=== PATIENT | female | born 1940 | race Caucasian/White ===

== ENCOUNTER → 2018-10-13 | Outpatient (CLI) | payer OTHER ==
[~2018-10-13] MED LIST: CEPHALEXIN 500500 M3 PO; HYDROCODON-ACE1 EAC7 PO; NYSTATIN 100,0015 G1 TP; VITAMINS
== END ==
LOC: M.RAD 13:43
DX: N63.11 Unspecified lump in the right breast, upper outer quadrant (principal)

== ENCOUNTER → 2019-04-27 | Outpatient (CLI) | payer OTHER | LOC: M.RAD 11:12 | DX: N60.01 Solitary cyst of right breast (principal) ==

== ENCOUNTER 2019-05-15 17:27 | Inpatient (IN) | payer OTHER ==
[~2019-05-15] VITALS: Ht 157.5 cm; Wt 58.9 kg
[2019-05-15 17:28] VITALS: BP 127/64
[2019-05-15 18:08] LABS: ABSOLUTE LYMPHOCYTES 0.6 thou/uL (0.8-5.3); ABSOLUTE MONOCYTES 0.7 thou/uL (0.0-1.2); ABSOLUTE NEUTROPHILS 7.7 thou/uL (1.6-8.1); BASOPHILS 0.2 %; EOSINOPHILS 0.5 %; HEMATOCRIT 36.1 % (37.0-47.0); HEMOGLOBIN 12.2 gm/dL (12.0-15.0); MCH 30.1 pg (26.0-34.0); MCHC 33.7 g/dL (28.0-37.0); MCV 89.4 fL (80.0-100.0); MPV 8.3 fl. (7.2-11.1); NUCLEATED RBCS 0 /100WBC; PLATELET COUNT* 478 thou/uL (150-400); POLYS 84.3 %; RBC 4.04 mil/uL (4.20-5.00); RDW-CV 13.8 % (10.5-14.5); WBC 9.2 thou/uL (4.0-11.0)
[2019-05-15 18:18] LABS: ANION GAP 8 mmol/L (7-16); BUN 9 mg/dL (7-18); CALCIUM 8.5 mg/dL (8.5-10.1); CHLORIDE 91 mmol/L (98-107); CO2 25 mmol/L (21-32); CREATININE 0.9 mg/dL (0.6-1.3); GLUCOSE 159 mg/dL (70-99); SODIUM 124 mmol/L (136-145)
[2019-05-15 18:18] LABS: BE -0.9 mmol/L (-2 to +3); PCO2 32.3 mmHg (35.0-45.0); pH 7.456 (7.340-7.450)
[2019-05-15 18:20] LABS: PO2 39.6 mmHg (75.0-100.0)
[2019-05-15 18:23] LABS: APTT 31.6 Seconds (25.0-31.3); PROTIME 10.7 Seconds (9.20-11.50)
[2019-05-15 18:34] LABS: ALBUMIN 2.6 g/dL (3.4-5.0); ALKALINE PHOSPHATASE 219 U/L (46-116); LIPASE 60 U/L (73-393); MAGNESIUM 1.7 mg/dL (1.8-2.4); NT-PRO BRAIN NAT PEPTIDE 3811 pg/mL (<300); SGOT 59 U/L (15-37); SGPT 64 U/L (30-65); TOTAL BILIRUBIN 0.4 mg/dL (<0.1-1.0); TOTAL PROTEIN 7.3 g/dL (6.4-8.2); TROPONIN-I LEVEL <0.06 ng/mL (<0.06)
[2019-05-15 20:08] VITALS: BP 123/60
[2019-05-15 20:45] VITALS: BP 114/60
[2019-05-15] MEDS ORDERED: GENTEAL TEARS 015 M1 OPHTHALMIC (22:32)
[2019-05-16 00:25] VITALS: BP 134/71
[2019-05-16 04:00] VITALS: BP 118/71
[2019-05-16 04:15] LABS: HEMATOCRIT 32.6 % (37.0-47.0); MCH 30.1 pg (26.0-34.0); MCHC 33.8 g/dL (28.0-37.0); MCV 89.3 fL (80.0-100.0); MPV 7.9 fl. (7.2-11.1); RBC 3.65 mil/uL (4.20-5.00); RDW-CV 13.4 % (10.5-14.5); WBC 5.5 thou/uL (4.0-11.0)
[2019-05-16 04:36] LABS: ALBUMIN 2.1 g/dL (3.4-5.0); CALCIUM 8.3 mg/dL (8.5-10.1); CREATININE 0.6 mg/dL (0.6-1.3); POTASSIUM 4.3 mmol/L (3.5-5.1); TOTAL BILIRUBIN 0.3 mg/dL (<0.1-1.0); TOTAL PROTEIN 6.5 g/dL (6.4-8.2)
[2019-05-16 06:05] LABS: BE 2.2 mmol/L (-2 to +3); PCO2 37.8 mmHg (35.0-45.0); PO2 60.6 mmHg (75.0-100.0); pH 7.456 (7.340-7.450)
[2019-05-16 08:00] VITALS: BP 131/65
[2019-05-16 10:45] LABS: CHOLESTEROL 132 mg/dL (<200); HDL CHOLESTEROL 45 mg/dL (>40); LDL CHOLESTEROL 80 mg/dL (<100); MAGNESIUM 1.7 mg/dL (1.8-2.4); SERUM ASSESSMENT Clear; TC:HDL 2.9 Ratio (Not establshd); TRIGLYCERIDE 37 mg/dL (<150); VLDL 7 mg/dL (<40)
[2019-05-16 11:00] VITALS: BP 118/62
--- NOTE | 2019-05-16 13:03 | EKG ---
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: : 1940 Requested By: Kade Garcia Order Number: [id number] MD: Indra Millan Measurements Intervals [place] Rate: 84 P: 20 ND: 136 QRS: -35 QRSD: 108 T: -28 QT: 411 QTc: 486 Interpretive Statements Sinus rhythm Left axis deviation Nonspecific T abnormalities, anterior leads Borderline prolonged QT interval No previous ECG available for comparison Electronically Signed On 05-16-2019 13:03:49 CDT by Indra Millan [email or web address] <ELECTRONICALLY SIGNED> By: Indra Millan MD, [facility] 05/16/19 1303 1736 173 Indra Millan MD, [facility] /EPI
[2019-05-16 15:30] VITALS: BP 113/54
[2019-05-16] MEDS ORDERED: VITAMIN D3400 UNIT PO (17:25)
[2019-05-16] MEDS ORDERED: PROBIOTIC1 EAC1 PO (17:26)
[2019-05-16] MEDS ORDERED: UNICOMPLEX M TA1 TA1 PO (17:26)
[2019-05-16] MEDS ORDERED: PYRIDOXINE HCL50 MG PO (17:28)
[2019-05-16] MEDS ORDERED: GARLIC1 EACH PO (17:29)
[2019-05-16] MEDS ORDERED: FISH OIL 1,001000 M2 PO (17:30)
[2019-05-16] MEDS ORDERED: GLUCOSAMINE HC500 MG PO (17:32)
[2019-05-16] MEDS ORDERED: [UNRECOGNIZED DRUG - OTHER] PO (17:34)
[2019-05-16] MEDS ORDERED: VITAMIN E400 UNIT PO (17:35)
[2019-05-16] MEDS ORDERED: LUBRICANT 0.5-015 ML OPHTHALMIC (17:36)
[2019-05-16 20:00] VITALS: BP 115/57
[2019-05-16 20:40] LABS: URINE BILIRUBIN NEGATIVE (Negative); URINE BLOOD NEGATIVE (Negative); URINE CLARITY CLEAR; URINE COLOR YELLOW; URINE GLUCOSE-RANDOM NEGATIVE (Negative); URINE KETONES NEGATIVE (Negative); URINE LEUKOCYTES-REFLEX NEGATIVE (Negative); URINE NITRITE-REFLEX NEGATIVE (Negative); URINE PROTEIN NEGATIVE (Negative); URINE UROBILINOGEN 0.2 E.U./dl (0.2-1.0)
[2019-05-16 20:47] LABS: AMP/METHAMP Negative (Negative); BARBITURATES Negative (Negative); BENZODIAZEPINES Negative (Negative); COCAINE Negative (Negative); METHADONE Negative (Negative); OPIATES Negative (Negative); PCP Negative (Negative); THC Negative (Negative)
[2019-05-17] VITALS (7 sets, daily range): BP systolic 113–136; BP diastolic 50–71
[2019-05-17 03:07] LABS: GLYCOHEMOGLOBIN (HGB A1C) 5.5 % (4.8-5.6)
[2019-05-17 04:56] LABS: CALCIUM 8.7 mg/dL (8.5-10.1); CREATININE 0.7 mg/dL (0.6-1.3); POTASSIUM 4.8 mmol/L (3.5-5.1)
[2019-05-17 05:03] LABS: HEMATOCRIT 32.9 % (37.0-47.0); HEMOGLOBIN 10.7 gm/dL (12.0-15.0); MCH 29.7 pg (26.0-34.0); MCHC 32.5 g/dL (28.0-37.0); MCV 91.6 fL (80.0-100.0); NUCLEATED RBCS 0 /100WBC; PLATELET COUNT* 420 thou/uL (150-400); RBC 3.59 mil/uL (4.20-5.00); RDW-CV 13.7 % (10.5-14.5); WBC 14.8 thou/uL (4.0-11.0)
[2019-05-17 06:48] LABS: ABSOLUTE LYMPHOCYTES 0.6 thou/uL (0.8-5.3); ABSOLUTE NEUTROPHILS 14.2 thou/uL (1.6-8.1); PLATELET ESTIMATE ADEQUATE
--- NOTE | 2019-05-17 08:25 | CON ---
[address] [address] CONSULTATION Name: HALLIE GLORIA Room: [address] IN M.R.#: [id number] Admission: 05/15/19 Attend Phys: Glenda Fernandez MD Discharge: Date of : 38 Report #: [id number] THIS REPORT FOR: //name// CC: Glenda Miner MD DATE OF SERVICE: 05/16/2019 ATTENDING PHYSICIAN: John Sales MD INDICATION FOR CONSULTATION: Hypoxemia, pulmonary infiltrates, fibrosis versus congestive heart failure. HISTORY OF PRESENT ILLNESS: The patient is an 78-year-old female, nonsmoker with multiple medical problems. She was seen in the Emergency Room with a 7-day history of increasing shortness of breath. She had some mild PND and orthopnea. She has had some peripheral edema and some lymphedema of her legs for which she bandages her legs up. She denies cough. She had 1 episode of low-grade fever. Denies any chills or sweats. She had diffuse infiltrates on her chest x-ray and on her CAT scan, looked more like pulmonary fibrosis at least at this time and possibly with some alveolar filling. She denies any aspiration to me. She states she has lost 100 pounds upon intention over the last 2 or 3 years, but denies fever, chills or night sweats at least at this time. She has had some arthritis in her hands, but denies any history of rheumatoid arthritis. No definite aspiration. She was markedly hypoxic with a pO2 in the 30s, which appeared to be an arterial sample upon admit and she was placed up to 12 liters. She is still running 91-92%. Cardiology is also supposed to see her. She is not very active at home. Does not get up and walk around much, but she states 2 or 3 weeks ago, she was fine and could walk across her apartment, still could not get out of air if she could go up and down stairs. She denies any sick or ill contacts or any recent travel. PAST MEDICAL HISTORY: She has had bilateral lower extremity edema. She has had weight loss, etiology unclear. She has some kyphosis. She has no history of COPD. She denies that and she has also had prior head injury, possible hyponatremia and she has had a scaphoid fracture of both wrists and had a distal radial fracture, which was just treated conservatively with casting. ALLERGIES: She has no known medical allergies. MEDICATIONS: She was previously on Keflex and nystatin and has never been on oxygen before. OTHER SURGICAL HISTORY: Includes 3 wrist breaks, osteoporosis [place] [address] CONSULTATION Name: HALLIE GLORIA Room: [address] ADM IN .R.#: [id number] Admission: 05/15/19 Attend Phys: Glenda Fernandez MD Discharge: Date of : 38 Report #: [id number] with medication for hypertension. Currently, the Solu-Medrol has just been ordered to 40 mg IV q. 8 hours and DuoNeb q. 4 hours while awake. She had 1 dose of Lasix yesterday afternoon, did not have much of a brisk response with that. We will repeat that dose of Lasix this morning. Also, is on ceftriaxone 1 gram IV piggyback daily, also on Lovenox 40 mg at bedtime. She is currently on 12 liters of oxygen with a sat of 92. FAMILY HISTORY: Negative for premature cardiopulmonary disease. No history of lung problems in the family. SOCIAL HISTORY: She is and lives at home with her son, Arcadio, who I believe is durable power of attorney law clerk and she lives in [place], [place]. Dr. Rosalee Stevenson, , is her attending physician. Again lifelong nonsmoker, nondrinker. REVIEW OF SYSTEMS: A 14 review of systems reviewed and negative except for a 100-pound weight loss over the last 2 years and some lymphedema. Otherwise, see H and P for pertinent findings, all else were negative. PHYSICAL EXAMINATION: GENERAL: A thin, frail, mildly dyspneic 78-year-old female, alert and oriented, in no acute distress at this time. VITAL SIGNS: Blood pressure is 130/65, heart rate 72, respirations were 20 and nonlabored, temperature is 36.4 degrees. She is 5 feet 3 inches tall, weight is 59 kilograms or 132 pounds and BMI is 23. HEENT: Unremarkable. Pharynx is clear. Teeth are in fair repair. NECK: Supple, without nodes. No increased jugular venous pressure. CHEST: Reveals bibasilar crackles in the lower lobes and some in the upper lobes without wheezes or rhonchi. She has some ykyn-an-cuqoojkh kyphosis noted on physical exam. CARDIOVASCULAR: Regular rate and rhythm without murmur, gallop or rub. Heart rate is in the 80s. ABDOMEN: Soft, without masses or megaly. EXTREMITIES: No cyanosis. Some edema, no clubbing and basically she was wrapped up with Trey bandages on her legs. I could get my finger through there. No actual clots or calf tenderness, maybe some 1+ swelling. Peripheral pulses are 2+. NEUROLOGIC: Grossly intact. She is nonfocal, can move all fours to commands. LABORATORY DATA: From 05/16/2019 shows hemoglobin 11, white count 5500, normal differential, platelets are 401,000. Sodium is 131, potassium is 4.3, chloride is 95, BUN is 8, creatinine 0.6, glucose is 157. AST and ALT are slightly elevated, alkaline phosphatase 175. Albumin is 2.1. Previous BNP was 3811, less than 300 is normal and albumin is 2.6. Lipase is 60. ABGs initially on room air on 05/15/2019 yesterday afternoon shows pO2 of 40, pH 7.45, pCO2 is 32 with a bicarb of 23, sat of 73%. This was thought to [place] [address] CONSULTATION Name: HALLIE GLORIA Room: [address] ADM [facility]#: [id number] Admission: 05/15/19 Attend Phys: Glenda Fernandez MD Discharge: Date of : 38 Report #: [id number] arterial blood gas. Repeat blood gas this morning on 12 liters showed a pO2 of 61, pH 7.45, pCO2 is 37, bicarb is 26, sat was 89%, which is improved. Carboxyhemoglobin is only 0.[address] of the chest and chest x-ray shows diffuse infiltrates, interstitial lung disease. No lung clots. Heart is upper limits of normal. Echo is pending. Cardiology consult is pending. IMPRESSION: 1. Diffuse pulmonary infiltrates, hypoxemia, etiology unclear, need to rule out aspiration versus idiopathic pulmonary fibrosis which would be a fairly rapid onset within 1 week. 2. Elevated BNP level, possible congestive heart failure. We will give an extra dose of Lasix. PLAN: Give an extra dose of Lasix. Continue on q. 8 hours of Solu-Medrol treatments and DuoNeb q. 4 hours while awake. Follow up another chest x-ray in the morning. If we need to at some point in time, we can consider fiberoptic bronchoscopy as an outpatient if the patient is willing. I do not think she needs open lung biopsy at least at this time. We will await the echocardiogram and then wait for CT of the chest and possibly CT angio of the chest to see if we need to do bronchoscopy and/or open lung biopsy. Rheumatoid factor and workup for lupus and single stranded DNA and RNA would be helpful to do a collagen vascular workup and see if that is an etiology of this. Maybe some venous Dopplers of her legs if she does not improve. This has been a 38-minute critical care consult. <ELECTRONICALLY SIGNED> By: Marcos Alvarenga MD 05/17/19 0825 1110 2117Amickey Alvarenga MD /nt
[2019-05-17 11:34] LABS: BE 3.8 mmol/L (-2 to +3); PCO2 41.7 mmHg (35.0-45.0); pH 7.447 (7.340-7.450)
[2019-05-18] VITALS: BP 135/69
[2019-05-18 03:45] VITALS: BP 109/67
[2019-05-18 05:11] LABS: CALCIUM 8.5 mg/dL (8.5-10.1); CREATININE 0.6 mg/dL (0.6-1.3); POTASSIUM 4.5 mmol/L (3.5-5.1)
--- NOTE | 2019-05-18 07:31 | 2DMMODE ---
[place] [address] 2 D/M-MODE ECHOCARDIOGRAM Name: HALLIE GLORIA Room: [address] IN [facility]#: [id number] Admission: 05/15/19 Attend Phys: Glenda Fernandez, Discharge: Date of : 36 Date of Service: 05/18/19 0731 Report #: [id number] THIS REPORT FOR: //name// APPROVED REPORT Study performed: 05/17/2019 11:58:03 EXAM: Comprehensive 2D, Doppler, and color-flow Echocardiogram Patient Location: In-Patient Room #: 202 Status: routine BSA: 1.59 HR: 77 bpm BP: 130/60 mmHg Rhythm: NSR Other Information Study Quality: Excellent Indications Dyspnea 2D Dimensions IVSd: 12.58 (7-11mm) LVOT Diam: 20.30 (18-24mm) LVDd: 46.83 mm PWd: 9.39 (7-11mm) Ascending Ao: 27.34 (22-36mm) LVDs: 25.85 (25-40mm) Aortic Root: 29.84 mm Volumes Left Atrial Volume (Systole) LA ESV Index: 47.30 mL/m2 Aortic Valve AoV Peak Jeet.: 3.01 m/s AO Peak Gr.: 36.16 mmHg LVOT Max P.95 mmHg AO Mean Gr.: 20.90 mmHg LVOT Mean P.91 mmHg LVOT Max V: 1.22 m/s AO V2 VTI: 63.22 cm LVOT Mean V: 0.78 m/s ANEESH (VTI): 1.46 cm2 LVOT V1 VTI: 28.45 cm AI Pershing: 3.05 m/s2 AI PHT: 357.34 ms Mitral Valve E/A Ratio: 0.74 [place] [address] 2 D/M-MODE ECHOCARDIOGRAM Name: JUANIHALLIE MACDONALD Room: [address] IN ..#: [id number] Admission: 05/15/19 Attend Phys: Glenda Fernandez, Discharge: Date of : 36 Date of Service: 05/18/19 0731 Report #: [id number] MV Decel. Time: 260.05 ms MV E Max Jeet.: 0.68 m/s MV PHT: 75.41 ms MVA (PHT): 2.92 cm2 TDI E/Lateral E': 6.80 E/Medial E': 8.50 Medial E' Jeet.: 0.08 m/s Lateral E' Jeet.: 0.10 m/s Pulmonary Valve PV Peak Jeet.: 0.78 m/s PV Peak Gr.: 2.45 mmHg Tricuspid Valve RAP Estimate: 10.00 mmHg TR Peak Gr.: 34.29 mmHg RVSP: 44.00 mmHg PA Pressure: 44.00 mmHg Left Ventricle The left ventricle is normal size. There is global hypokinesis of the left ventricle. There is normal left ventricular wall thickness. Left ventricular systolic function is mildly decreased. LVEF is 45-50%. Grade I - abnormal relaxation pattern. Right Ventricle Right ventricle is dilated. The right ventricular systolic function is normal. Atria Left atrium is severely dilated. Right atrium is dilated. Aortic Valve Aortic valve leaflets are moderately thickened. Mild aortic regurgitation. Mild aortic stenosis. Mitral Valve The mitral valve is normal in structure. Trace mitral regurgitation. No evidence of mitral valve stenosis. Tricuspid Valve The tricuspid valve is normal in structure. Mild tricuspid regurgitation. estimated pa pressure 45 mm Hg Pulmonic Valve Pulmonic valve is not well visualized. There is no pulmonic [place] [address] 2 D/M-MODE ECHOCARDIOGRAM Name: HALLIE GLORIA Room: [address] IN [facility]#: [id number] Admission: 05/15/19 Attend Phys: Glenda Fernandez, Discharge: Date of : 36 Date of Service: 05/18/19 0731 Report #: [id number] Great Vessels The aortic root is normal in size. IVC is dilated. Pericardium There is no pericardial effusion. <Conclusion> LVEF is 45-50%. Right ventricle is dilated. Left atrium is severely dilated. Right atrium is dilated. Mild aortic regurgitation. Mild aortic stenosis. Mild tricuspid regurgitation. estimated pa pressure 45 mm Hg <ELECTRONICALLY SIGNED> By: Indra Millan MD, [facility] 05/18/19730 0 0 Indra Millan MD, [facility]ACC /INF
[2019-05-18 08:00] VITALS: BP 128/59
--- NOTE | 2019-05-18 10:40 | CON ---
[address] [address] CONSULTATION Name: HALLIE GLORIA Room: [address] IN M.R.#: [id number] Admission: 05/15/19 Attend Phys: Glenda Fernandez MD Discharge: Date of : 38 Report #: [id number] THIS REPORT FOR: //name// CC: Glenda Stevenson DO DATE OF SERVICE: 05/16/2019 CARDIOLOGY CONSULTATION HISTORY OF PRESENT ILLNESS: The patient is an 78-year-old single white female who I was asked to see in the hospital today after she complained of being short of breath. The patient denies a history of heart or lung disease. She stays fairly active and works out on a treadmill at home. She does use a cane occasionally. She notes for the past week, she has had increasing shortness of breath. She notes a fever or cough. Because of increasing shortness of breath, she finally came to the hospital last night and was admitted. I was asked to see her for cardiac evaluation. She denies a history of myocardial infarction or chest pain. She denies a history of a heart murmur. She has had no previous cardiac evaluation. Denies any palpitations or syncope. She apparently has a long history of chronic swelling of her legs. She has been diagnosed with lymphedema in the past and uses daily wraps around her legs. She has had previous wrist fracture. She has had elevated blood pressure in the past, but is on no medications at this time. FAMILY HISTORY: Father with diabetes. SOCIAL HISTORY: She is , lives with son in [place]. No smoking. Rarely drinks alcohol. REVIEW OF SYSTEMS: She has had no history of stroke, asthma, peptic ulcer disease, liver disease, kidney disease, cancer, psychiatric illness, chronic skin condition. PHYSICAL EXAMINATION: GENERAL: Revealed an elderly frail appearing female, lying in bed. She appeared in no distress. VITAL SIGNS: She had a blood pressure 130/60, pulse is 70. She is afebrile. HEENT: She was anicteric. Conjunctivae pink. Mucous membranes moist. NECK: Veins do not appear distended. No carotid bruits heard. CHEST: Clear to auscultation. CARDIOVASCULAR: Regular rate and rhythm. There was a grade 3 holosystolic murmur at the apex. ABDOMEN: Soft. EXTREMITIES: She had wrappings around both lower [place] [address] CONSULTATION Name: HALLIE GLORIA Room: [address]#: [id number] Admission: 05/15/19 Attend Phys: Glenda Fernandez MD Discharge: Date of : 38 Report #: [id number] SKIN: Cool and dry. NEUROLOGIC: Nonfocal. RADIOLOGICAL DATA: Her ECG on admission showed a sinus rhythm, occasional PVC. There does not appear to be a 12-lead ECG on the patient's chart at this time. Her workup in the Emergency Room last night, she had a CT scan of the chest using a PE protocol last night in the Emergency Room that showed no pulmonary embolus, no aortic dissection, atelectasis or chronic pulmonary changes noted. Her portable chest x-ray showed cardiomegaly, diffuse pulmonary changes. Pulmonary vasculature appeared normal. Pulmonary infiltrates. LABORATORY WORK: Sodium 131, creatinine 0.6, glucose 157, alkaline phosphatase is 175, albumin 2.1. Troponin 0.06. BNP 3811, LDL 80. TSH is 0.29, white blood cell count 5.5, hemoglobin 11, hematocrit 36.1. IMPRESSION AND RECOMMENDATIONS: 1. Bronchitis. 2. Bilateral pulmonary infiltrates. Possible atypical pneumonia. 3. Heart murmur. Suspect mitral regurgitation. Recommend echocardiogram. 4. Lymphedema. The patient wears leg wrappings. <ELECTRONICALLY SIGNED> By: Indra Millan MD, [facility] 05/18/19 1040 1123 2103Dike Millan MD, FACC /nt
[2019-05-18 12:18] VITALS: BP 119/55
[2019-05-18 16:14] VITALS: BP 111/53
[2019-05-18 20:00] VITALS: BP 145/73
[2019-05-19] VITALS (7 sets, daily range): BP systolic 103–158; BP diastolic 48–81
[2019-05-19 04:31] LABS: CALCIUM 8.8 mg/dL (8.5-10.1); CREATININE 0.6 mg/dL (0.6-1.3); POTASSIUM 4.7 mmol/L (3.5-5.1)
[2019-05-19 14:08] LABS: ANA INTERPRETATION Negative (Negative)
[2019-05-20] VITALS (7 sets, daily range): BP systolic 101–128; BP diastolic 50–63
[2019-05-20 05:02] LABS: HEMATOCRIT 35.4 % (37.0-47.0); HEMOGLOBIN 11.9 gm/dL (12.0-15.0); MCHC 33.5 g/dL (28.0-37.0); MCV 89.7 fL (80.0-100.0); MPV 7.4 fl. (7.2-11.1); NUCLEATED RBCS 0 /100WBC; PLATELET COUNT* 430 thou/uL (150-400); RBC 3.94 mil/uL (4.20-5.00); RDW-CV 13.4 % (10.5-14.5); WBC 7.4 thou/uL (4.0-11.0)
[2019-05-20 05:26] LABS: CALCIUM 8.6 mg/dL (8.5-10.1); CREATININE 0.8 mg/dL (0.6-1.3); POTASSIUM 4.8 mmol/L (3.5-5.1)
[2019-05-20 05:53] LABS: ABSOLUTE EOSINOPHILS 0.2 thou/uL (0.0-0.7); ABSOLUTE LYMPHOCYTES 0.7 thou/uL (0.8-5.3); ABSOLUTE MONOCYTES 0.2 thou/uL (0.0-1.2); ABSOLUTE NEUTROPHILS 6.2 thou/uL (1.6-8.1); PLATELET ESTIMATE INCREASED
[2019-05-20 05:54] LABS: ANISOCYTOSIS 1+; LARGE PLATELETS RARE; POIKILOCYTOSIS 1+
[2019-05-20 14:09] LABS: ANTI-DNA SCREEN <1 IU/mL (0-9); ANTI-RNP <0.2 AI (0.0-0.9)
[2019-05-21] VITALS: BP 123/67
[2019-05-21 04:00] VITALS: BP 114/60
[2019-05-21 04:52] LABS: CALCIUM 8.8 mg/dL (8.5-10.1); CREATININE 0.7 mg/dL (0.6-1.3); MAGNESIUM 2.3 mg/dL (1.8-2.4); POTASSIUM 5.3 mmol/L (3.5-5.1)
[2019-05-21 07:57] VITALS: BP 122/51
[2019-05-21 16:00] VITALS: BP 90/42
[2019-05-21 21:00] VITALS: BP 119/54
[2019-05-22] VITALS: BP 117/60
[2019-05-22 04:00] VITALS: BP 109/66
[2019-05-22 05:35] LABS: CALCIUM 8.4 mg/dL (8.5-10.1); CREATININE 0.7 mg/dL (0.6-1.3); MAGNESIUM 1.8 mg/dL (1.8-2.4); POTASSIUM 4.7 mmol/L (3.5-5.1)
[2019-05-22 08:00] VITALS: BP 146/95
[2019-05-22 12:00] VITALS: BP 95/52
[2019-05-22 15:27] VITALS: BP 110/52
[2019-05-22 20:00] VITALS: BP 99/44
[2019-05-23] VITALS: BP 113/50
[2019-05-23 04:00] VITALS: BP 127/62
[2019-05-23 04:54] LABS: CALCIUM 8.3 mg/dL (8.5-10.1); CREATININE 0.6 mg/dL (0.6-1.3); MAGNESIUM 2.1 mg/dL (1.8-2.4); POTASSIUM 4.4 mmol/L (3.5-5.1)
[2019-05-23 07:45] VITALS: BP 113/60
[2019-05-23] MEDS ORDERED: METOPROLOL SUCC25 M1 PO (08:48)
[2019-05-23] MEDS ORDERED: VENTOLIN HFA 1818 GM INH (08:49)
[2019-05-23] MEDS ORDERED: COZAAR 50 MG TA50 M1 PO (08:49)
[2019-05-23] MEDS ORDERED: LASIX 40 MG TAB40 M2 PO (08:49)
[2019-05-23 11:54] VITALS: BP 113/60
== END 2019-05-23 18:48 | disposition home health service (06) | DRG 177 ==
LOC: M.ERS 17:27 → M.TBA-ER 18:48 → M.2W 18:48
PROVIDERS: Family Medicine; Internal Medicine; Internal Medicine Cardiovascular Disease; Internal Medicine Pulmonary Disease; ADMIT Internal Medicine
DX: J15.6 Pneumonia due to other Gram-negative bacteria (principal); J96.01 Acute respiratory failure with hypoxia; I50.43 Acute on chronic combined systolic (congestive) and diastolic (congestive) heart failure; E87.1 Hypo-osmolality and hyponatremia; I47.2 Ventricular tachycardia; J84.9 Interstitial pulmonary disease, unspecified; M81.0 Age-related osteoporosis without current pathological fracture; R01.1 Cardiac murmur, unspecified; I89.0 Lymphedema, not elsewhere classified; M13.842 Other specified arthritis, left hand; M13.841 Other specified arthritis, right hand; I11.0 Hypertensive heart disease with heart failure; J45.909 Unspecified asthma, uncomplicated; Z66 Do not resuscitate; E11.9 Type 2 diabetes mellitus without complications; J84.10 Pulmonary fibrosis, unspecified; I27.20 Pulmonary hypertension, unspecified; I08.0 Rheumatic disorders of both mitral and aortic valves; E05.90 Thyrotoxicosis, unspecified without thyrotoxic crisis or storm; Z79.899 Other long term (current) drug therapy; Z87.81 Personal history of (healed) traumatic fracture; Z83.3 Family history of diabetes mellitus; Z82.49 Family history of ischemic heart disease and other diseases of the circulatory system

== ENCOUNTER → 2019-05-26 | Outpatient (CLI) | payer OTHER ==
[~2019-05-26] MED LIST changes: +COZAAR 50 MG TA50 M1 PO; +FISH OIL 1,001000 M2 PO; +GARLIC1 EACH PO; +GENTEAL TEARS 015 M1 OPHTHALMIC; +GLUCOSAMINE HC500 MG PO; +LASIX 40 MG TAB40 M2 PO; +LUBRICANT 0.5-015 ML OPHTHALMIC; +METOPROLOL SUCC25 M1 PO; +PROBIOTIC1 EAC1 PO; +PYRIDOXINE HCL50 MG PO; +UNICOMPLEX M TA1 TA1 PO; +VENTOLIN HFA 1818 GM INH; +VITAMIN D3400 UNIT PO; +VITAMIN E400 UNIT PO; +[UNRECOGNIZED DRUG - OTHER] PO
[2019-05-26 13:12] LABS: CALCIUM 8.5 mg/dL (8.5-10.1); CREATININE 0.3 mg/dL (0.6-1.3); POTASSIUM 5.7 mmol/L (3.5-5.1)
== END ==
LOC: M.LAB 12:16
PROVIDERS: Nurse Practitioner
DX: I50.22 Chronic systolic (congestive) heart failure (principal)

== ENCOUNTER → 2019-10-15 | Outpatient (CLI) | payer OTHER ==
--- NOTE | 2019-10-16 17:07 | PATH ---
[address] [address] PATHOLOGY RPT PROCEDURE Name: HALLIE AMES [id number] Admission: 10/15/19 Date of : 36 Discharge: Report #: [id number] Path Case #: [id number] [facility] Accession Number: [id number] . 01 Material submitted: . breast - RIGHT BREAST STEREOTACTIC BIOPSY FOR CALCIFICATIONS. Modifiers: right . 01 Clinical history: . Right breast stereotactic biopsy for calcifications . 02 Diagnosis: Right breast calcifications, stereotactic biopsy: - Benign fat with multiple nodular foci of fat necrosis showing dense fibrosis and coarse calcifications. See comment. (JESSICA:arnoldo; 10/16/2019) MBR 10/16/2019 1229 Local . 02 Comment: There are no breast epithelial tissues identified. Reviewed with Dr. Donal Wilkinson who agrees with the diagnosis. (JESSICA:it support manager; 10/16/2019) . 02 Electronically signed: . Cassius Estrada MD, Pathologist NPI- [id number] . 01 Gross description: . Received in formalin labeled "Hallie Ames, right breast calcifications," are 6 distinct needle cores of yellow-burks fibrofatty tissue ranging from 2.3-2.6 cm in length and 0.5-0.6 cm in diameter. The tissue is submitted in its entirety in cassettes A1-A3. The cold ischemic time is 5 minutes. The total formalin fixation time is 8 hours. (TSD; 10/15/2019) TOB/TOB 10/16/2019 1228 Local . 02 Pathologist provided ICD-10: N60.31, N64.1, R92.1 . 02 CPT . 383862 Specimen Comment: A courtesy copy of this report has been sent to [phone], [phone] Specimen Comment: [id number] Specimen Comment: Report sent to / DR WORTHINGTON Performed at: [address] [id number] [place] [address] PATHOLOGY RPT PROCEDURE Name: HALLIE AMES Room: [facility] Emi#: [id number] Admission: 10/15/19 Date of : 38 Discharge: Report #: [id number] Path Case #: [id number] MD Samy Kelley MD Phone: [phone] Performed at: [facility] [address], [place], [place] [id number] MD Cassius Estrada MD Phone: [phone]
== END | disposition home or self-care (01) ==
LOC: M.RAD 13:50
DX: R92.1 Mammographic calcification found on diagnostic imaging of breast (principal); N60.31 Fibrosclerosis of right breast; N64.1 Fat necrosis of breast; Z98.890 Other specified postprocedural states; Z79.899 Other long term (current) drug therapy

== ENCOUNTER → 2021-03-22 | Outpatient (CLI) | payer OTHER ==
[2021-03-22 14:52] LABS: ABSOLUTE MONOCYTES 0.3 thou/uL (0.0-1.2); ABSOLUTE NEUTROPHILS 2.9 thou/uL (1.6-8.1); BASOPHILS 0.7 %; EOSINOPHILS 1.1 %; HEMATOCRIT 34.1 % (37.0-47.0); HEMOGLOBIN 11.7 gm/dL (12.0-15.0); LYMPHOCYTES 22.5 %; MCH 30.9 pg (26.0-34.0); MCHC 34.3 g/dL (28.0-37.0); MCV 89.8 fL (80.0-100.0); MONOCYTES 8.2 %; NUCLEATED RBCS 0 /100WBC; PLATELET COUNT* 230 thou/uL (150-400); POLYS 67.5 %; RBC 3.79 mil/uL (4.20-5.00); RDW-CV 14.3 % (10.5-14.5); WBC 4.2 thou/uL (4.0-11.0)
[2021-03-22 15:00] LABS: URINE BILIRUBIN NEGATIVE (Negative); URINE BLOOD NEGATIVE (Negative); URINE CLARITY CLEAR; URINE COLOR YELLOW; URINE GLUCOSE-RANDOM NEGATIVE (Negative); URINE KETONES NEGATIVE (Negative); URINE NITRITE-REFLEX NEGATIVE (Negative); URINE PROTEIN NEGATIVE (Negative); URINE UROBILINOGEN 0.2 E.U./dl (0.2-1.0)
[2021-03-22 15:02] LABS: URINE LEUKOCYTES-REFLEX 2+ (Negative)
[2021-03-22 15:12] LABS: ALBUMIN 3.5 g/dL (3.4-5.0); CALCIUM 8.4 mg/dL (8.5-10.1); CREATININE 0.7 mg/dL (0.6-1.3); POTASSIUM 3.7 mmol/L (3.5-5.1); TOTAL BILIRUBIN 0.3 mg/dL (<0.1-1.0); TOTAL PROTEIN 7.5 g/dL (6.4-8.2)
[2021-03-22 15:20] LABS: CASTS None Seen /LPF (None Seen); CRYSTALS None Seen /LPF (None Seen); SQUAMOUS 0-3 Few /LPF (0-3); URINE RBC 0-2 Rare /HPF (0-2); URINE WBC-REFLEX 0-5 Rare /HPF (0-5)
== END ==
LOC: M.ULTRA 12:44
PROVIDERS: ATTEND Specialist
DX: I50.43 Acute on chronic combined systolic (congestive) and diastolic (congestive) heart failure (principal); M79.89 Other specified soft tissue disorders; I10 Essential (primary) hypertension; R60.9 Edema, unspecified; R63.5 Abnormal weight gain; R10.9 Unspecified abdominal pain

== ENCOUNTER 2021-09-12 00:03 | Inpatient (IN) | payer OTHER ==
[~2021-09-12] VITALS: Ht 152.4 cm; Wt 59.6 kg
[2021-09-12] VITALS (7 sets, daily range): BP systolic 103–132; BP diastolic 48–58
[2021-09-12 01:03] LABS: HEMATOCRIT 27.8 % (37.0-47.0); HEMOGLOBIN 9.2 gm/dL (12.0-15.0); MCHC 33.1 g/dL (28.0-37.0); MCV 75.7 fL (80.0-100.0); MPV 6.9 fl. (7.2-11.1); NUCLEATED RBCS 0 /100WBC; PLATELET COUNT* 628 thou/uL (150-400); RBC 3.67 mil/uL (4.20-5.00); RDW-CV 14.8 % (10.5-14.5); WBC 20.7 thou/uL (4.0-11.0)
[2021-09-12 01:16] LABS: CALCIUM 7.7 mg/dL (8.5-10.1); CREATININE 0.7 mg/dL (0.6-1.3); POTASSIUM 4.4 mmol/L (3.5-5.1)
[2021-09-12 01:22] LABS: ABSOLUTE LYMPHOCYTES 0.8 thou/uL (0.8-5.3); ABSOLUTE MONOCYTES 0.8 thou/uL (0.0-1.2)
[2021-09-12 01:23] LABS: PLATELET ESTIMATE ADEQUATE
[2021-09-12 01:25] LABS: INFLUENZA A ANTIGEN Negative (Negative); INFLUENZA B ANTIGEN Negative (Negative)
[2021-09-12 01:27] LABS: ALBUMIN 2.1 g/dL (3.4-5.0); MAGNESIUM 1.8 mg/dL (1.8-2.4); TOTAL BILIRUBIN 0.5 mg/dL (<0.1-1.0); TOTAL PROTEIN 6.7 g/dL (6.4-8.2)
[2021-09-12 03:27] LABS: URINE BILIRUBIN NEGATIVE (Negative); URINE BLOOD 2+ (Negative); URINE CLARITY CLEAR; URINE COLOR YELLOW; URINE GLUCOSE-RANDOM NEGATIVE (Negative); URINE KETONES NEGATIVE (Negative); URINE LEUKOCYTES-REFLEX 3+ (Negative); URINE NITRITE-REFLEX NEGATIVE (Negative); URINE PROTEIN TRACE (Negative); URINE UROBILINOGEN 0.2 E.U./dl (0.2-1.0)
[2021-09-12 03:28] LABS: SQUAMOUS 0-3 Few /LPF (0-3); URINE WBC-REFLEX 6-15 Few /HPF (0-5)
[2021-09-12 03:29] LABS: BACTERIA-REFLEX 1-9 Few /HPF (None Seen); CASTS None Seen /LPF (None Seen); CRYSTALS None Seen /LPF (None Seen)
--- NOTE | 2021-09-12 09:52 | EKG ---
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[place] : 1940 Requested By: Migdalia Gomez Order Number: [id number] MD: Gustavo Eastman Measurements Intervals [place] Rate: 79 P: 61 CO: 124 QRS: -31 QRSD: 139 T: 43 QT: 404 QTc: 464 Interpretive Statements Sinus rhythm Nonspecific intraventricular conduction delay Baseline artifact since prior tracing, artifact is noted Electronically Signed On 09-12-2021 9:52:28 [employer]MP[employer] by Gustavo Eastman [email or web address] <ELECTRONICALLY SIGNED> By: Gustavo Eastman MD, [facility] 09/12/21 0952 Gustavo Eastman MD, [facility] /EPI
[2021-09-12 11:29] LABS: PROTIME 10.7 Seconds (9.20-11.50)
[2021-09-12 11:30] LABS: CALCIUM 7.2 mg/dL (8.5-10.1); CREATININE 0.8 mg/dL (0.6-1.3); POTASSIUM 3.9 mmol/L (3.5-5.1)
--- NOTE | 2021-09-12 16:11 | 2DMMODE ---
[place] [address] 2 D/M-MODE ECHOCARDIOGRAM Name: HALLIE GLORIA Room: [address] IN [facility]#: [id number] Admission: 09/12/21 Attend Phys: Harsha Goldstein, Discharge: Date of : 36 Date of Service: 09/12/21 1611 Report #: [id number] THIS REPORT FOR: cc: Rosalee Stevenson,Rosalee Navarro,Gustavo Tipton MD [facility] ~ APPROVED REPORT Study performed: 09/12/2021 15:19:38 EXAM: Comprehensive 2D, Doppler, and color-flow Echocardiogram Patient Location: In-Patient Room #: [facility] BSA: 1.56 HR: 78 bpm BP: 111/51 mmHg Other Information Study Quality: Good Indications Pericardial Effusion 2D Dimensions IVSd: 10.79 (7-11mm) LVOT Diam: 19.78 (18-24mm) LVDd: 41.27 mm PWd: 8.80 (7-11mm) Ascending Ao: 24.69 (22-36mm) LVDs: 22.72 (25-40mm) Aortic Root: 22.90 mm Volumes Left Atrial Volume (Systole) LA ESV Index: 20.90 mL/m2 Aortic Valve AoV Peak Jeet.: 3.14 m/s AO Peak Gr.: 39.47 mmHg LVOT Max P.34 mmHg AO Mean Gr.: 24.89 mmHg LVOT Mean P.82 mmHg LVOT Max V: 0.91 m/s AO V2 VTI: 62.89 cm LVOT Mean V: 0.63 m/s ANEESH (VTI): 1.02 cm2 LVOT V1 VTI: 20.93 cm AI Burleigh: 2.61 m/s2 AI PHT: 407.66 [place] [address] 2 D/M-MODE ECHOCARDIOGRAM Name: [place] Room: [address] IN .R.#: [id number] Admission: 09/12/21 Attend Phys: Harsha Goldstein, Discharge: Date of : 36 Date of Service: 09/12/21 1611 Report #: [id number] Mitral Valve E/A Ratio: 0.61 MV Decel. Time: 258.99 ms MV E Max Jeet.: 0.57 m/s MV PHT: 75.11 ms MVA (PHT): 2.93 cm2 TDI E/Lateral E': 6.33 E/Medial E': 8.14 Medial E' Jeet.: 0.07 m/s Lateral E' Jeet.: 0.09 m/s Pulmonary Valve PV Peak Jeet.: 1.16 m/s PV Peak Gr.: 5.39 mmHg Tricuspid Valve RAP Estimate: 5.00 mmHg TR Peak Gr.: 35.19 mmHg RVSP: 40.19 mmHg PA Pressure: 40.19 mmHg Left Ventricle The left ventricle is normal size. There is normal LV segmental wall motion. Mild concentric left ventricular hypertrophy. Left ventricular systolic function is normal. The left ventricular ejection fraction is within the normal range. LVEF is 65%. Grade I - abnormal relaxation pattern. Right Ventricle The right ventricle is normal size. The right ventricular systolic function is normal. Atria Left atrium is mildly dilated. The right atrium size is normal. Aortic Valve Moderate aortic valve sclerosis. Mild to moderate aortic regurgitation. Moderate aortic stenosis. Peak aortic valve gradient is 40mmHg. Mitral Valve The mitral valve is normal in structure. Mild mitral regurgitation. No evidence of mitral valve stenosis[place] [address] 2 D/M-MODE ECHOCARDIOGRAM Name: HALLIE GLORIA Room: [address] IN [facility]#: [id number] Admission: 09/12/21 Attend Phys: Harsha Goldstein, Discharge: Date of : 36 Date of Service: 09/12/21 1611 Report #: [id number] The tricuspid valve is normal in structure. Mild to moderate tricuspid regurgitation. Pulmonic Valve The pulmonary valve is normal in structure. There is no pulmonic valvular regurgitation. Great Vessels The aortic root is normal in size. IVC is normal in size and collapses >50% with inspiration. Pericardium There is no pericardial effusion. <Conclusion> The left ventricle is normal size. Mild concentric left ventricular hypertrophy. Left ventricular systolic function is normal. The left ventricular ejection fraction is within the normal range. LVEF is 65%. Grade I - abnormal relaxation pattern. The right ventricle is normal size. Left atrium is mildly dilated. The right atrium size is normal. Moderate aortic valve sclerosis. Mild to moderate aortic regurgitation. Moderate aortic stenosis. Peak aortic valve gradient is 40mmHg. The mitral valve is normal in structure. Mild mitral regurgitation. The tricuspid valve is normal in structure. IVC is normal in size and collapses >50% with inspiration. There is normal LV segmental wall motion. <ELECTRONICALLY SIGNED> By: Gustavo Eastman MD, FACC 09/12/211610 10 10 Gustavo Eastman MD, FACC /INF
--- NOTE | 2021-09-12 16:28 | NUR ---
CM ASSESSMENT: PT A&O, INDEPENDENT WITH ADL'S AND ACTIVE PRIOR TO ADMIT. PT RESIDES AT HOME WTIH SON. PT USES CANE FOR MOBILITY, BUT ALSO OWNS A CANE. PT HAS 0 HX OF HH OR SNF. CM D/C PLANNING NEEDS TBD AT THIS TIME. CM WILL REMAIN AVAILABLE TO ASSIST AND FOLLOW NEEDED.
--- NOTE | 2021-09-12 18:18 | NUR ---
Patient has rested in her bed this shift. Thompson catheter placed today draing clear yellow urine to dependent drainage. Patient has had a fair apetite at meals today. Patient answers questions appropriatly and son was at bedside for visit. Abdomen is still round and disteneded, patient voices no complaints of pain or discomfort. Will contniue with the POC.
--- NOTE | 2021-09-12 18:40 | CON ---
[address] [address] CONSULTATION Name: HALLIE GLORIA Room: [address] IN M.R.#: [id number] Admission: 09/12/21 Attend Phys: Harsha Goldstein MD Discharge: Date of : 36 Report #: [id number] THIS REPORT FOR: cc: Rosalee Stevenson Linda J. DO Vardakis, Gregory DO ~ cc: Rosalee Stevenson DO DATE OF CONSULTATION: 09/12/2021 Please note at the time of this dictation, the patient was seen and physically examined by myself. REASON FOR CONSULTATION: Abnormal CT with abdominal masses on the liver, colon wall thickening and esophageal wall thickening. Please note at the time of this dictation, the patient was seen and physically examined by myself. HISTORY OF PRESENT ILLNESS: This is an 81-year-old female who presented to the Emergency Room by her son. He stated that he had been noticing that she was having some slurred speech and left-sided facial droop for the last 2-3 hours and she would not eat or drink. In talking with the patient, she states she did not feel that was the cause that she had been noticing that her belly had gotten bigger over the last couple of weeks, but she denies any abdominal pain. She states she really has not been able to eat or drink much. She does have some difficulty with liquids, she states and that it does not always want to go down. She denies any nausea or vomiting at this time. She does state that over the last 2 weeks, she has had a change in her bowel habits. Normally prior to that time, she was going daily, soft and formed without any evidence of any bright red blood or melanotic stool. However, since that time, she states she has been having more issues with constipation and more pellets, but she has not noticed any bright red blood or melanotic stool. Her main complaint is that her belly has gotten bigger and she is unclear why she is also complaining about her legs being swollen as well. In talking with the patient, she states it has been many years since she had an EGD, colonoscopy and she does not recall where they were done at before. ALLERGIES: No known drug allergies. MEDICATIONS FROM HOME: Include vitamin E, glucosamine, fish oil, garlic, pyridoxine, Probiotic, multivitamin, D3 and gentle tears. PAST MEDICAL HISTORY: Significant for osteoporosis, calcifications in her breast tissue, noncompliant for medication for her blood pressure and congestive heart failure and ____. [place] [address] CONSULTATION Name: HALLIE GLORIA Room: [address] IN M.R.#: [id number] Admission: 09/12/21 Attend Phys: Harsha Goldstein MD Discharge: Date of : 38 Report #: [id number] PAST SURGICAL HISTORY: None. FAMILY HISTORY: Negative for any GI or female cancers. SOCIAL HISTORY: Denies any tobacco use. She does say she drinks alcohol on a daily basis, but does not give me any quantity and denies any illegal drug use. REVIEW OF SYSTEMS: Twelve-point review of systems is essentially negative except what is mentioned in the HPI. PHYSICAL EXAMINATION: VITAL SIGNS: Temperature 37.4, pulse 78, respirations 24, blood pressure 111/51. HEART: Regular rate and rhythm. LUNGS: Clear. ABDOMEN: Distended, soft, no obvious masses and no tenderness noted. LABORATORY DATA: Hemoglobin is 9.2, white count is 20.7, platelets are 628, MCV is 75.7. Sodium is 114. BUN is 13, creatinine 0.7, GFR is 80, total bilirubin is 0.5, alkaline phosphatase 120, ALT 27, AST is 37. No PT and INR noted. IMAGING: CT of the abdomen and pelvis shows gallbladder is distended with small amount of layering sludge or noncalcified gallstones, oval fluid collections along the surface of the liver, may represent peritoneal implants or small abscess. The pancreas is normal. Spleen is normal. Liver contour is mildly nodular, portal veins are more prominent. Stomach shows small bowel and colon, stomach is fluid filled and the small bowel is fluid filled and gas distended consistent with a diffuse ileus, a large fluid collection with thickened wall is present in the pelvis measuring 11 cm x 6.1 x 10.2, thickening noted of the sigmoid area. CTA of the chest shows thickened esophageal wall thickening. IMPRESSION: 1. Abnormal CT of the abdomen and pelvis as noted above in dictation under imaging. 2. Change in bowel habits over the last two weeks. 3. Dysphagia, intermittently with liquids. 4. Abdominal distention. 5. Anemia. 6. Leukocytosis. 7. Hyponatremia. PLAN) 1. Labs, iron studies, ferritin, B12, GGTP and AFP. 2. Ultrasound of the abdomen and pelvis to further evaluate her pelvic mass and [address] [address] CONSULTATION Name: HALLIE GLORIA Room: [address] IN M.R.#: [id number] Admission: 09/12/21 Attend Phys: Harsha Goldstein MD Discharge: Date of : 38 Report #: [id number] liver lesions. 3. Timing of EGD and colonoscopy will depend on the above findings. 4. We will await results of the above and once Dr. Duran sees the patient for further recommendations. Thank you for allowing us to participate in this patient's care. Please do not hesitate to call with any questions in regard to this consult. <ELECTRONICALLY SIGNED> By: Anibal Duran DO 09/12/21 1840 0950 [id number] Duran DO /nt
[2021-09-12 20:20] LABS: CALCIUM 6.9 mg/dL (8.5-10.1); CREATININE 0.6 mg/dL (0.6-1.3); POTASSIUM 3.9 mmol/L (3.5-5.1); URIC ACID* 3.3 mg/dL (2.6-7.2)
[2021-09-12 23:02] LABS: CALCIUM 6.7 mg/dL (8.5-10.1); CREATININE 0.7 mg/dL (0.6-1.3); POTASSIUM 3.9 mmol/L (3.5-5.1)
[2021-09-13] VITALS (7 sets, daily range): BP systolic 83–132; BP diastolic 38–77
[2021-09-13 04:43] LABS: HEMATOCRIT 23.1 % (37.0-47.0); HEMOGLOBIN 7.4 gm/dL (12.0-15.0); MCHC 32.3 g/dL (28.0-37.0); MCV 74.3 fL (80.0-100.0); RBC 3.1 mil/uL (4.20-5.00); RDW-CV 14.9 % (10.5-14.5); WBC 15.4 thou/uL (4.0-11.0)
[2021-09-13 05:07] LABS: ALBUMIN 1.4 g/dL (3.4-5.0); CALCIUM 6.6 mg/dL (8.5-10.1); CREATININE 0.5 mg/dL (0.6-1.3); MAGNESIUM 1.8 mg/dL (1.8-2.4); POTASSIUM 3.6 mmol/L (3.5-5.1); TOTAL BILIRUBIN 0.3 mg/dL (<0.1-1.0); TOTAL PROTEIN 4.8 g/dL (6.4-8.2)
--- NOTE | 2021-09-13 06:48 | NUR ---
PT A&OX4, VSS ON 4L O2 NC, IV FLUIDS INFUSING ORDERED, SR ON TELE MONITOR WITH OCCAUSIONAL PVC. URINARY CATHETER IN PLACE, PT REPOSITIONED Q2H. PT AM BP 83/38 HR 72, ASYMPTOMATIC. IV FLUIDS INFUSING AT 60ML/H ORDERED. PT Hgb 9.2 YESTERDAY, Hgb 7.4 THIS AM. PT HAD ONE LARGE, YELLOW, LIQUID BM AT APPROX 2000 LAST NIGHT. YOU CALL SENT NOTIFYING PHYSICAIN AT 0644, AWAITING RESPONSE.
[2021-09-13 07:16] LABS: CALCIUM 6.5 mg/dL (8.5-10.1); CREATININE 0.5 mg/dL (0.6-1.3); POTASSIUM 3.6 mmol/L (3.5-5.1)
[2021-09-13 11:45] LABS: CALCIUM 6.8 mg/dL (8.5-10.1); CREATININE 0.6 mg/dL (0.6-1.3); POTASSIUM 3.4 mmol/L (3.5-5.1)
--- NOTE | 2021-09-13 14:29 | NUR ---
TALKED TO NURSE DAVID AT [address] ABDOMINAL BIOPSY TOMORROW (09/14/21) ON PATIENT HALLIE MACDONALD. PER DR. NICHOLSON INJ LEVONOX 40 MG NEED TO BE HELD TONIGHT AND TOMORROW MORNING.
--- NOTE | 2021-09-13 15:15 | NUR ---
PLAN OF CARE: PHYSICIAN INFORMS THAT THE PT IS NOT MEDICALLY STABLE AT THIS TIME. PT MAY BENEFIT FROM HH AT D/C. CM WILL REMAIN AVAILABLE TO ASSIST AND FOLLOW NEEDED.
--- NOTE | 2021-09-13 16:34 | NUR ---
Assummed care at 0730. Pt is alert and oriented. Assessment done. Pt's son visited with her. Pt's sodium is trending up. Will continue to care for patient.
[2021-09-13 16:36] LABS: CALCIUM 6.5 mg/dL (8.5-10.1); CREATININE 0.6 mg/dL (0.6-1.3); POTASSIUM 3.8 mmol/L (3.5-5.1)
[2021-09-14] VITALS (15 sets, daily range): BP systolic 92–136; BP diastolic 38–66
[2021-09-14 04:11] LABS: HEMATOCRIT 22.9 % (37.0-47.0); HEMOGLOBIN 7.4 gm/dL (12.0-15.0); MCH 24.4 pg (26.0-34.0); MCHC 32.1 g/dL (28.0-37.0); MCV 75.9 fL (80.0-100.0); RBC 3.02 mil/uL (4.20-5.00); RDW-CV 15.2 % (10.5-14.5); WBC 14.6 thou/uL (4.0-11.0)
[2021-09-14 04:38] LABS: ALBUMIN 1.3 g/dL (3.4-5.0); CALCIUM 6.5 mg/dL (8.5-10.1); CREATININE 0.6 mg/dL (0.6-1.3); MAGNESIUM 1.8 mg/dL (1.8-2.4); TOTAL BILIRUBIN 0.2 mg/dL (<0.1-1.0); TOTAL PROTEIN 4.9 g/dL (6.4-8.2)
--- NOTE | 2021-09-14 07:05 | NUR ---
CAHNGE OF SHIFT REPORT GIVEN PATIENT SEEN AT BEDSIDE, IN BED ASLEEP ASSUMED PATIENT CARE
--- NOTE | 2021-09-14 13:35 | NUR ---
WOUND NURSE: PATIENT SEEN TO ADDRESS SACRAL STAGE 2 PRESSURE INJURY. MEASURES 0.2 X 0.3 X 0.1 CM. PRESENTS WITH PARTIAL THICKNESS TISSUE LOSS, NO ACTIVE DRAINAGE, RED, NONGRANULATING TISSUE IN THE WOUND BED. CLEANSED WITH SOAP AND WATER, RINSED, THEN PATTED DRY. APPLIED SKIN PREP TO INTACT PERIWOUND TISSUE, THEN APPLIED EXUDERM SATIN (CUT TO FIT) to wound, then secured in place using suresite transparent dressing. INSTRUCTED PATIENT ON MEASURES TO PROMOTE HEALING AND PREVENT COMPLICATIONS AND WITH GOOD UNDERSTANDING VERBALIZED.
--- NOTE | 2021-09-14 13:45 | NUR ---
PLAN OF CARE: PHYSICIAN INFORMS OF PLAN TO POSSIBLY D/C PT HOME WITH HH TOMORROW. CM WILL REMAIN AVAILABLE TO ASSIST AND FOLLOW NEEDED.
[2021-09-15] VITALS: BP 106/59
[2021-09-15 04:00] VITALS: BP 113/51
[2021-09-15 04:37] LABS: HEMATOCRIT 23.4 % (37.0-47.0); HEMOGLOBIN 7.6 gm/dL (12.0-15.0); MCH 24.4 pg (26.0-34.0); MCHC 32.4 g/dL (28.0-37.0); MCV 75.5 fL (80.0-100.0); MPV 6.9 fl. (7.2-11.1); RBC 3.11 mil/uL (4.20-5.00); WBC 13.8 thou/uL (4.0-11.0)
[2021-09-15 04:49] LABS: CALCIUM 6.9 mg/dL (8.5-10.1); CREATININE 0.6 mg/dL (0.6-1.3); MAGNESIUM 1.7 mg/dL (1.8-2.4); POTASSIUM 4.2 mmol/L (3.5-5.1)
[2021-09-15 07:47] VITALS: BP 113/53
--- NOTE | 2021-09-15 08:06 | NUR ---
Alert and oriented x 4. She had a liver biopsy and she has a bandaid dressing to her LLQ. She hasn't requested anything for pain. She is SR on the monitor. O2 sat is 97% on 2L n/c. She as had ice cream tonight.
[2021-09-15 13:47] VITALS: BP 127/55
[2021-09-15 16:07] LABS: CREATININE 0.5 mg/dL (0.6-1.3); POTASSIUM 4.8 mmol/L (3.5-5.1)
--- NOTE | 2021-09-15 18:30 | NUR ---
Pt up to chair for breakfast this morning, but in bed for remainder of shift. VSS. Additional IV started due to IVF order and incompatible IV abx (Zosyn & Doxycycline). Na+ level trending down (mid-120s), so NS ordered @ 80 ml/hr. VSS. Will continue to monitor.
[2021-09-15 19:03] VITALS: BP 135/62
[2021-09-15 20:00] VITALS: BP 113/50
[2021-09-16] VITALS: BP 124/50
[2021-09-16 04:04] VITALS: BP 128/57
[2021-09-16 08:22] VITALS: BP 123/56
[2021-09-16 12:00] VITALS: BP 120/58
[2021-09-16 12:50] LABS: HEMATOCRIT 23.9 % (37.0-47.0); HEMOGLOBIN 7.4 gm/dL (12.0-15.0); MCH 24.3 pg (26.0-34.0); MCHC 31.2 g/dL (28.0-37.0); MPV 6.8 fl. (7.2-11.1); RBC 3.06 mil/uL (4.20-5.00)
[2021-09-16 13:01] LABS: CREATININE 0.4 mg/dL (0.6-1.3); POTASSIUM 4.6 mmol/L (3.5-5.1)
[2021-09-16 13:05] LABS: ALBUMIN 1.2 g/dL (3.4-5.0); MAGNESIUM 1.8 mg/dL (1.8-2.4); TOTAL BILIRUBIN 0.1 mg/dL (<0.1-1.0); TOTAL PROTEIN 5.3 g/dL (6.4-8.2)
[2021-09-16 16:00] VITALS: BP 119/59
[2021-09-16 20:10] VITALS: BP 121/56
[2021-09-17 02:31] VITALS: BP 137/69
[2021-09-17 04:50] VITALS: BP 132/62
[2021-09-17 08:32] LABS: HEMATOCRIT 28.4 % (37.0-47.0); MCH 24.7 pg (26.0-34.0); MCHC 31.8 g/dL (28.0-37.0); MCV 77.4 fL (80.0-100.0); MPV 6.7 fl. (7.2-11.1); RBC 3.66 mil/uL (4.20-5.00); RDW-CV 15.1 % (10.5-14.5); WBC 10.5 thou/uL (4.0-11.0)
[2021-09-17 09:07] LABS: ALBUMIN 1.4 g/dL (3.4-5.0); CALCIUM 7.5 mg/dL (8.5-10.1); CREATININE 0.5 mg/dL (0.6-1.3); MAGNESIUM 1.9 mg/dL (1.8-2.4); POTASSIUM 4.7 mmol/L (3.5-5.1); TOTAL BILIRUBIN 0.2 mg/dL (<0.1-1.0); TOTAL PROTEIN 6.2 g/dL (6.4-8.2)
[2021-09-17 09:30] VITALS: BP 119/61
[2021-09-17 12:06] VITALS: BP 117/56
--- NOTE | 2021-09-17 12:17 | CON ---
[address] [address] CONSULTATION Name: HALLIE GLORIA Room: [address] ADM IN M.R.#: [id number] Admission: 09/12/21 Attend Phys: Harsha Goldstein MD Discharge: Date of : 38 Report #: [id number] THIS REPORT FOR: cc: Rosalee Stevenson Linda J. DO Elia, Manana MD ~ DATE OF CONSULTATION: 09/13/2021 REQUESTING PHYSICIAN: Harsha Goldstein MD. REASON FOR CONSULTATION: Pelvic mass. HISTORY OF PRESENT ILLNESS: The patient is an 81-year-old woman, poor historian, who was admitted to the hospital with altered mental status. She was brought by a family member. She has severe hyponatremia. She has a history of CHF. She mentioned on admission that she has been concerned about increasing abdominal girth. She had not been compliant with her diuretics. Nephrology consult was requested. Nephrology is in case. Her sodium is getting better. Because of abdominal girth increase, she had a CT of abdomen and pelvis. This demonstrated a large cystic pelvic mass with multiple peritoneal cystic masses. Oncology consult is requested. She again is a poor historian. She does not have complaints of nausea, vomiting, diarrhea. She states that she has not lost weight, although she is not sure. Her appetite is okay. Denies cough, denies melena or hematochezia. PAST MEDICAL HISTORY: Significant for CHF, osteoporosis. FAMILY HISTORY: Noncontributory. SOCIAL HISTORY: She lives with her son. Akhil not smoke currently, does not drink alcohol excessively. REVIEW OF SYSTEMS: See above. PHYSICAL EXAMINATION: GENERAL: Reveals a chronically ill-appearing woman, not in acute distress, sitting comfortably, eating lunch. VITAL SIGNS: Blood pressure 132/68, heart rate is 88, temperature 98.6, respirations 18. NECK: Supple. HEART: Normal S1, S2. There is no supraclavicular lymphadenopathy, no axillary lymphadenopathy. ABDOMEN: Distended. EXTREMITIES: +1 edema. MENTAL STATUS: [place] [address] CONSULTATION Name: HALLIE GLORIA Room: [address] IN [facility]#: [id number] Admission: 09/12/21 Attend Phys: Harsha Goldstein MD Discharge: Date of : 38 Report #: [id number] LABORATORY DATA: White count 15.4, hemoglobin 7.4, MCV 74.3, platelets 533. Sodium 127, potassium 3.4, BUN 6, creatinine 0.6. LFTs normal. AFP 2.6. CT of abdomen and pelvis shows numerous ring-like enhancing fluid collections adjacent to the surface of the liver and throughout the lower abdomen and pelvis, may represent multiple cystic metastases. Small abscess cannot be excluded. Air fluid collection in the cul-de-sac measures 11.1 x 6.1 x 10.2 cm, most likely represents cystic metastases. ASSESSMENT AND PLAN: 1. Pelvic mass, suspicious for malignancy. I am planning to order CT-guided biopsy of peritoneal implant. CA-125 2. Hyponatremia, improving. Nephrology on case. 3. Anemia, most likely multifactorial. Serum folate is normal, ferritin 234. This could be relatively low in the setting of chronic problems. Plan is to complete workup of anemia as an outpatient. We will transfuse if necessary. 4. Thrombocytosis, most likely reactive. Thank you very much for allowing me to participate in care of this patient. <ELECTRONICALLY SIGNED> By: Pollo Boucher MD 09/17/21 1217 2144Pollo Boucher MD /nt
[2021-09-17 15:49] VITALS: BP 120/60
[2021-09-17 20:15] VITALS: BP 115/57
[2021-09-18 01:30] VITALS: BP 149/73
--- NOTE | 2021-09-18 04:29 | NUR ---
PT A&OX4 VSS ON 1L O2 NC, IV FLUIDS INFUSING ORDERED (1 BAG NS), UP WITH ASSIT TO BSC. SR/ST ON TELE MONITOR. URINARY CATHETER IN PLACE, REPOSITIONED Q2H. PRN PAIN MED REQUESTED AND GIVEN ORDERED. PT SLEEPING WELL, WILL CONTINUE TO MONITOR.
[2021-09-18 04:48] VITALS: BP 137/66
[2021-09-18 05:48] LABS: HEMATOCRIT 26.4 % (37.0-47.0); HEMOGLOBIN 8.3 gm/dL (12.0-15.0); MCH 24.4 pg (26.0-34.0); MCHC 31.4 g/dL (28.0-37.0); MCV 77.7 fL (80.0-100.0); MPV 6.6 fl. (7.2-11.1); RBC 3.4 mil/uL (4.20-5.00); RDW-CV 15.3 % (10.5-14.5)
[2021-09-18 06:05] LABS: CALCIUM 7.4 mg/dL (8.5-10.1); CREATININE 0.6 mg/dL (0.6-1.3); MAGNESIUM 1.7 mg/dL (1.8-2.4); POTASSIUM 4.3 mmol/L (3.5-5.1)
--- NOTE | 2021-09-18 07:25 | NUR ---
CHANGE OF SHIFT REPORT GIVEN PATIENT SEEN AT BEDSIDE, IN BED ASLEEP ASSUMED PATIENT CARE
[2021-09-18 08:00] VITALS: BP 139/70
[2021-09-18 12:26] VITALS: BP 133/77
--- NOTE | 2021-09-18 13:49 | NUR ---
PLAN OF CARE: PLAN FOR THE [facility] ST[facility]. INSURANCE AUTH FOR THE PT HAS BEEN APPROVED. PT WILL NEED PT/OT F/U WILL BE NEED TO OBTAIN CONTINUED INSURANCE AUTH FOR THE PT. CM WILL REMAIN AVAILABLE TO ASSIST AND FOLLOW NEEDED.
[2021-09-18 17:11] VITALS: BP 128/79
[2021-09-18 20:00] VITALS: BP 113/64
[2021-09-19] VITALS (16 sets, daily range): BP systolic 102–151; BP diastolic 57–77
--- NOTE | 2021-09-19 02:46 | NUR ---
PT ALERT ORIENTED. PT EATTING FREQUENTLY THROUGH OUT THE SHIFT. PT STATED THEY BRING ME TOO MUCH ALL AT ONCE AND I CAN'T EAT IT. TYLENOL GIVEN FOR ABD PAIN. OVENS SUPERVISOR TRACING SR. IV L HAND HURTING PT. NEW IV STARTED IN R FA,
[2021-09-19 05:24] LABS: HEMATOCRIT 23.5 % (37.0-47.0); HEMOGLOBIN 7.5 gm/dL (12.0-15.0); MCH 24.4 pg (26.0-34.0); MCV 76.3 fL (80.0-100.0); MPV 6.4 fl. (7.2-11.1); RBC 3.08 mil/uL (4.20-5.00); RDW-CV 15.3 % (10.5-14.5); WBC 8.4 thou/uL (4.0-11.0)
[2021-09-19 05:34] LABS: CALCIUM 7.3 mg/dL (8.5-10.1); CREATININE 0.6 mg/dL (0.6-1.3); POTASSIUM 4.5 mmol/L (3.5-5.1)
--- NOTE | 2021-09-19 08:14 | NUR ---
IR CALLED TO ASK THIS RN TO CALL DR FLOYD ON BEHALF OF DR GUTIERREZ AND ASK DR FLOYD TO CALL. THIS RN LEFT VOICEMAIL WITH DR REGALADO NURSE WITH NUMBER GIVEN BY IR RN: [id number].
[2021-09-19 10:48] LABS: APTT 29.7 Seconds (25.0-31.3); PROTIME 10.5 Seconds (9.20-11.50)
--- NOTE | 2021-09-19 15:54 | NUR ---
MURPHY REMOVED WITH NO COMPLICATIOS AT THIS TIME. 10ML SALINE IN BALLOON.
--- NOTE | 2021-09-19 16:11 | NUR ---
pt states she wants to be DNR, listed as full code in the computer. Dr Fernandez notified of this.
--- NOTE | 2021-09-19 18:52 | NUR ---
PT HAD ABD DRAIN PLACED THIS SHIFT. PT HAD 250ML OF THICK, YELLOW/BROWN/GREYISH OUTPUT. HAD TO MILK THE BAG TO GET CONTENTS TO EMPTY. PTS SON UPDATED THIS SHIFT PER PT REQUEST. KATHERINE REMOVED THIS SHIFT.
[2021-09-20 04:00] VITALS: BP 124/66
[2021-09-20 05:50] LABS: HEMATOCRIT 21.9 % (37.0-47.0); HEMOGLOBIN 7.1 gm/dL (12.0-15.0); MCH 24.3 pg (26.0-34.0); MCHC 32.2 g/dL (28.0-37.0); MCV 75.5 fL (80.0-100.0); MPV 6.5 fl. (7.2-11.1); RBC 2.9 mil/uL (4.20-5.00); RDW-CV 15.2 % (10.5-14.5); WBC 11.1 thou/uL (4.0-11.0)
--- NOTE | 2021-09-20 05:50 | NUR ---
PT ALERT ORIENTED. UP TO BSC TO VOID. PT HAD ONE INCONT EPISOID. [employer] MEDICAL SERGEANT TRACING SR. DRAIN WITH THICK WHARTON.
[2021-09-20 06:00] LABS: CALCIUM 7.4 mg/dL (8.5-10.1); CREATININE 0.5 mg/dL (0.6-1.3); POTASSIUM 4.3 mmol/L (3.5-5.1)
[2021-09-20 08:00] VITALS: BP 125/59
[2021-09-20 12:00] VITALS: BP 124/53
--- NOTE | 2021-09-20 15:18 | NUR ---
MEDICATION ADMIN AND VITALS OF THE IR DRAIN PLACEMENT IS LOCATED ON 09/19/21 @ [id number] TIMES.
[2021-09-20 15:51] VITALS: BP 141/64
--- NOTE | 2021-09-20 17:32 | NUR ---
PATIENT IS PLEASENT AND COOPERATIVE WITH CARES, ABLE TO MAKE HER NEEDS AND WANTS KNOWN. ALERT AND ORIENTED TO PERSON, PLACE AND SITUATION. HAS A GOOD APPETITE AT [employer]. INCONTINENT OF BLADDER, REMAINS ON 1500 FLUID RESTRICTION. BLE EDEMATOUS AND SHINY NO REDNESS NOTED. SON AT BEDSIDE THIS EVENING. DRAIN TO RIGHT BACK PATENT WITH SMALL AMOUNT OF BROWN DRAINAGE NOTED TO BAG. MEDICATIONS AND TREATMENTS GIVEN PER PHYSCAINS ORDERS. IV IN RT ARM DISCONTINUED AND NEW IV IN LEFT AC INSERTED. PATIENT VOICES NO C/O PAIN OR DISCOMFORT AT THIS TIME. WILL CONTINUE WITH THE PLAN OF CARE.
--- NOTE | 2021-09-20 18:08 | NUR ---
THIS RN AGREES WITH THE CHARTING COMPLETED BY VARINDER Rosas LPN ON 09/20/21.
[2021-09-20 20:00] VITALS: BP 141/61
[2021-09-21] VITALS (7 sets, daily range): BP systolic 109–144; BP diastolic 53–72
--- NOTE | 2021-09-21 04:30 | NUR ---
PT ALERT ORIENTED. PT HAVING EPISOIDS OF INCONTINENC. LYUBOV AREA EXCORIATED. BARRIER CREAM APPLIED. FISCAL ANALYST TRACING SR. USES CALL EDEN APPROPRIATELY.
[2021-09-21 04:40] LABS: HEMOGLOBIN 7.1 gm/dL (12.0-15.0); MCH 24.9 pg (26.0-34.0); MCHC 32.5 g/dL (28.0-37.0); MCV 76.7 fL (80.0-100.0); MPV 6.5 fl. (7.2-11.1); RBC 2.87 mil/uL (4.20-5.00); RDW-CV 15.3 % (10.5-14.5)
[2021-09-21 05:18] LABS: CALCIUM 7.6 mg/dL (8.5-10.1); CREATININE 0.4 mg/dL (0.6-1.3); MAGNESIUM 1.7 mg/dL (1.8-2.4); POTASSIUM 4.2 mmol/L (3.5-5.1)
--- NOTE | 2021-09-21 18:51 | NUR ---
PT A&OX4 AND WEARING 2.5L NC. PT ABLE TO VOICE NEEDS NEEDED. PT RESTING COMFORTABLY AND CALL EDEN WITHIN REACH.
[2021-09-22] VITALS: BP 130/64
[2021-09-22 04:00] VITALS: BP 144/66
[2021-09-22 05:49] LABS: HEMATOCRIT 23.4 % (37.0-47.0); HEMOGLOBIN 7.6 gm/dL (12.0-15.0); MCHC 32.5 g/dL (28.0-37.0); MPV 6.6 fl. (7.2-11.1); RBC 3.03 mil/uL (4.20-5.00); RDW-CV 15.6 % (10.5-14.5); WBC 7.1 thou/uL (4.0-11.0)
[2021-09-22 07:02] LABS: CALCIUM 7.7 mg/dL (8.5-10.1); CREATININE 0.5 mg/dL (0.6-1.3); MAGNESIUM 1.7 mg/dL (1.8-2.4); POTASSIUM 4.6 mmol/L (3.5-5.1)
[2021-09-22 08:00] VITALS: BP 154/68
[2021-09-22] MEDS ORDERED: AUGMENTIN 875-1 EACH PO (12:43)
[2021-09-22] MEDS ORDERED: ZOSYN 3.373.375 GM/1 IV (12:55)
--- NOTE | 2021-09-22 15:11 | NUR ---
dr montes notified of need for PICC per ID.
--- NOTE | 2021-09-22 15:14 | NUR ---
REPORT CALLED TO MICHAEL NURSE AT [facility].
--- NOTE | 2021-09-22 15:25 | NUR ---
WHEELCHAIR VAN TO PICK PT UP AT 1700. FACILITY CALLED REPORT BY PRIMO BERNARDO TO MICHAEL, NURSE AT [facility]. ID RECOMMENDATIONS PLACED IN PTS D/C PAPERWORK. KULDIP SET UP RETURN W/C VAN ORIGINAL RIDE WAS SET UP FOR 1530 AND PICC LINE WAS NEEDED.
--- NOTE | 2021-09-22 15:50 | NUR ---
PLAN FOR THE PT TO D/C TODAY TO [facility]. PT AND SON IN AGREEMENT. RN TO CALL REPORT. [facility] TO PROVIDE W/C VAN TRANSPORT AT [phone]. CM WILL REMAIN AVAILABLE TO ASSIST AND FOLLOW NEEDED. [facility] PHONE: [phone] [facility] PHONE: [phone]
--- NOTE | 2021-09-22 18:42 | NUR ---
PT TELE MONITOR REMOVED. PT DISCHARGED WITH PICC LINE IN PLACE FOR POST DISCHARGE ANTIBIOTICS. REPORT GIVEN TO MICHAEL AT [facility]. PT SON TOOK ALL BELONGINGS THAT PATIENT WAS ADMITTED WITH. PT LEFT FLOOR WITH TRANSPORT AT 1840.
--- NOTE | 2021-09-25 07:06 | PATH ---
[address] [address] PATHOLOGY RPT PROCEDURE Name: HALLIE GLORIA Room: [address] IN [facility]#: [id number] Admission: 09/12/21 Date of : 38 Discharge: 09/22/21 Report #: [id number] Path Case #: [id number] Note [facility] Accession Number: [id number] TESTS RESULT FLAG UNITS REF RANGE LAB Clinician Provided Cytology Information No. of containers..01 Other (Miscellaneous) Source: PELIV FLUID ABSCESS DIAGNOSIS: PELIV FLUID ABSCESS: NEGATIVE FOR MALIGNANT CELLS. EXTENSIVE ACUTE INFLAMMATION INDICATIVE OF ABSCESS. THIS INTERPRETATION INCLUDES EVALUATION OF A CELL BLOCK. Signed out by: 02 Cassius Estrada MD, Pathologist NPI- [id number] Performed by: Libby Song, Tobacco Farmworker ([facility]) Gross description: 01 30ML, YELLOW, CLDY THICK /LCS 09/20/2021 1614 Local FLAG LEGEND: L-Low Normal,H-High Normal,LL-Alert Low,HH-Alert High <-Panic Low,>-Panic High,A-Abnormal,AA-Critical Abnormal Performed at: [address] [place] [address] Donal Wilkinson MD, [address] [place] [address] [address] [place] [address] Cassius Estrada MD, Performed at: [address], [place], [place] [id number] MD Donal Wilkinson MD Phone: [phone]
--- NOTE | 2021-09-25 13:07 | PATH ---
[address] [address] PATHOLOGY RPT PROCEDURE Name: JUANIHALLIE MACDONALD Room: [address] IN M.R.#: [id number] Admission: 09/12/21 Date of : 38 Discharge: 09/22/21 Report #: [id number] Path Case #: [id number] [facility] Accession Number: [id number] . 01 Material submitted: . pelvis - PELVIC MASS RLQ. Modifiers: right, lower . 01 Clinical history: . 4.5 X 4.3 X 2.8 CM MULTIPLE ABD/PELVIC MASSES MASS WAS CYSTIC BIOPSIES INCLUDED THE WALL OF CYST . 02 Diagnosis: Pelvic mass RLQ, imaged guided core biopsies: - Nondiagnostic for malignancy. - Heavily inflamed fibrovascular stroma and necrotic inflammatory debris most consistent with abscess. See comment. (JESSICA:nico; 09/25/2021) QMS 09/25/2021 1103 Local . 02 Comment: In addition to few fragments of benign skeletal muscle and a small fragment of lymphoid possible lymph node tissue, are multiple fragments of heavily inflamed fibrous stroma some of which has a very heavy population of neutrophils and in addition fragments of necrotic inflammatory debris. A panel of properly controlled immunohistochemical studies performed on A1 show the following results: . Keratin MITRA - Highlights spindle cells in discrete patches CAM5.2: Highlights spindle cells in discrete patches Keratin AE1/AE3: Highlights spindle cells in discrete patches D240: Highlights spindle cells in areas of keratin positivity Calretinin: Negative CEA: Negative CK5/6: Negative CAIN: Negative GATA3: Negative CDX2: Negative Estrogen receptor: Negative PAX8: Negative CK20: Negative CK7: Negative. . These results show keratin positivity also with D240 positivity thought most likely to represent mesothelial reactivity within fibrous stroma around an abscess. The scant lymphoid/possible lymph node tissue present, morphologically appears benign. Extensive [place] [address] PATHOLOGY RPT PROCEDURE Name: HALLIE AMES Room: [address] IN [facility].#: [id number] Admission: 09/12/21 Date of : 36 Discharge: 09/22/21 Report #: [id number] Path Case #: [id number] studies was performed with consideration of the possibility of a sarcomatoid carcinoma which although thought unlikely, cannot be entirely excluded. . Reviewed with Dr. Rigo Wilkinson on 09/22/2021, who agrees with the diagnosis and interpretation. (JESSICA:nico; 09/25/2021) . 02 Electronically signed: . Cassius Estrada MD, Pathologist NPI- [id number] . 01 Gross description: . The specimen is received in formalin, labeled "Hallie mAes, abdominal mass". Received are multiple, pale hinton fragments of needle core tissue measuring 1.3 x 0.9 x 0.1 cm in aggregate dimensions. The specimen is filtered and entirely submitted in cassette A1. ([facility]; 09/14/2021) NRI/NRI 09/14/2021 1858 Local . 02 Pathologist provided ICD-10: M79.89, R19.03 . 02 CPT . 953456, P95672, I33689 Specimen Comment: A courtesy copy of this report has been sent to [phone], [phone] Specimen Comment: [id number] Specimen Comment: Report sent to / DR WORTHINGTON Performed at: 01 [facility] [address] [facility] [address], [place] [id number] MD Donal Wilkinson MD Phone: [phone] Performed at: 02 [facility] [address], [place], [place] [id number] MD Cassius Estrada MD Phone: [phone]
== END 2021-09-22 18:45 | DRG 388 ==
LOC: M.ERS 00:03 → M.2W 02:46 → M.TBA-ER 02:46 → M.2W 02:58
PROVIDERS: Emergency Medicine; Internal Medicine; Internal Medicine Nephrology; Nurse Practitioner Adult Health; Radiology Diagnostic Radiology; ADMIT Internal Medicine; ATTEND Internal Medicine
PROC: 0WBH3ZX Excision of Retroperitoneum, Percutaneous Approach, Diagnostic (ICD-10-PCS; principal; 2021-09-14)
PROC: 0W9J30Z Drainage of Pelvic Cavity with Drainage Device, Percutaneous Approach (ICD-10-PCS; 2021-09-19)
PROC: 05HY33Z Insertion of Infusion Device into Upper Vein, Percutaneous Approach (ICD-10-PCS; 2021-09-22)
DX: K56.600 Partial intestinal obstruction, unspecified as to cause (principal); J15.6 Pneumonia due to other Gram-negative bacteria; E87.1 Hypo-osmolality and hyponatremia; I50.32 Chronic diastolic (congestive) heart failure; E44.0 Moderate protein-calorie malnutrition; L02.211 Cutaneous abscess of abdominal wall; N13.6 Pyonephrosis; C56.9 Malignant neoplasm of unspecified ovary; Z20.822 Contact with and (suspected) exposure to COVID-19; M81.0 Age-related osteoporosis without current pathological fracture; R13.10 Dysphagia, unspecified; R19.00 Intra-abdominal and pelvic swelling, mass and lump, unspecified site; D75.839 Thrombocytosis, unspecified; R33.9 Retention of urine, unspecified; I11.0 Hypertensive heart disease with heart failure; I87.8 Other specified disorders of veins; B96.89 Other specified bacterial agents as the cause of diseases classified elsewhere; I95.9 Hypotension, unspecified; D50.9 Iron deficiency anemia, unspecified; D63.8 Anemia in other chronic diseases classified elsewhere; N73.9 Female pelvic inflammatory disease, unspecified; Z91.14 Patient's other noncompliance with medication regimen

== ENCOUNTER → 2021-10-11 | Outpatient (CLI) | payer OTHER ==
[~2021-10-11] MED LIST changes: +AUGMENTIN 875-1 EACH PO; +ZOSYN 3.373.375 GM/1 IV
== END ==
LOC: M.CT 14:25
PROVIDERS: ATTEND Family Medicine
DX: J98.4 Other disorders of lung (principal); I51.7 Cardiomegaly; K80.20 Calculus of gallbladder without cholecystitis without obstruction; N32.89 Other specified disorders of bladder; R19.07 Generalized intra-abdominal and pelvic swelling, mass and lump; E87.1 Hypo-osmolality and hyponatremia